=== PATIENT | female | born 1955 | race Caucasian/White ===

== ENCOUNTER → 2020-04-03 13:25 | Outpatient (CLI) | payer MEDICARE, OTHER, SELFPAY ==
[2020-04-02 13:58] VITALS: BMI 27.1
--- NOTE | 2020-04-03 13:27 | US_ITS ---
STUDY: ULTRASOUND BREAST - RIGHT REASON FOR EXAM: Female, 65 years old. Palpable lump in the right breast. TECHNIQUE: Axial and longitudinal images of the RIGHT breast were performed with a high resolution ultrasound transducer. # OF IMAGES: 49 COMPARISON: Comparison is made with prior mammogram done earlier today. FINDINGS: RIGHT Breast: The mammographic abnormality corresponds to a 2.1 cm x 2.2 cm x 1.4 cm hypoechoic irregular solid nodule with posterior acoustical shadowing. Increased blood flow is seen within the. A biopsy is recommended for further evaluation. US/Breast Limited Unilateral IMPRESSION: 2.1 cm x 2.2 cm x 1.4 cm irregular heterogeneous solid nodule at the 9 o''clock position of the breast corresponding to the palpable abnormality. A biopsy recommended. ASSESSMENT CATEGORY: BIRADS Category 5: Highly Suggestive of Malignancy - Appropriate Action Should Be Taken. A letter regarding these results will be sent to the patient by the facility within 30 days. Electronically Signed: Brooks Vaughn, at 15:15 EDT , Service support ,
--- NOTE | 2020-04-03 13:27 | BI_ITS ---
MAMMOGRAPHY - BILATERAL DIAGNOSTIC REASON FOR EXAM: Female, 65 years old. Right breast lump. PERTINENT HISTORY: Non-contributory. TECHNIQUE: Digital bilateral breast edgar (3D mammographic acquisition) in the CC and MLO projections. 2-D mediolateral oblique (MLO) and craniocaudad (CC) views of both breasts were obtained. CAD: Full Field Digital Mammography with Computer Added Detection was performed. COMPARISON: No comparison mammograms available at this time. If any prior films become available, an addendum to this report can be generated. FINDINGS: Breast Composition: The breasts are heterogeneously dense, which may obscure small masses. The palpable abnormality corresponds to a 2.6 cm x 2.9 cm irregular spiculated nodule in the axillary region of the right breast. There is evidence of overlying skin thickening and skin retraction. Correlation with ultrasound is recommended. No other significant abnormalities are identified. BI/DIAG MAMM W/CAD, BILAT IMPRESSION: 2.6 cm x 2.9 cm spiculated irregular nodule in the axillary region of the right breast corresponding to the abnormality. Correlation with ultrasound is recommended. ASSESSMENT CATEGORY: BIRADS Category 0: Incomplete. Need additional imaging evaluation. A letter regarding these results will be sent to the patient by the facility within 30 days. Approximately 10% of breast cancers are not detected by mammography. A normal mammogram should not delay biopsy of a clinically suspicious abnormality. Electronically Signed: Brooks Vaughn, at 15:14 EDT , Service support ,
== END ==
PROVIDERS: Referring Provider Nurse Practitioner Women's Health; Visit Provider Nurse Practitioner Women's Health
DX: N64.4 Mastodynia (principal); N63.10 Unspecified lump in the right breast, unspecified quadrant
CPT/HCPCS: 76642; 77062; 77066; G0279

== ENCOUNTER → 2020-04-04 14:03 | Outpatient (CLI) | payer MEDICARE, OTHER, SELFPAY ==
--- NOTE | 2020-04-04 | BRBX_PTH ---
PATIENT: ENOCH MOSQUEDA LOC: [facility] U#:[id number] AGE/SX: 70/F ROOM: RE04/04/[address]: Dr. Alvin Zee MD : 1955 BED: DIS: SPEC #: [id number] RECD: 04/04/20 13:09 STATUS: TEZ BLAIR #: [id number] ELLE: 04/04/20 00:[address]: Alvin Zee DEPT: SURGICAL PATHOLOGY RECD BY: Maksim Scott ENTERED: 04/08/20 08:33 SP TYPE: BREAST BX OTHR DR: No Primary Care Phys Tissues: Right breast, NOS Procedures: Surgery Specimen Level IV HEADER OPERATION: Ultrasound-guided needle core biopsy, right breast PRE-OP DIAGNOSIS: Right breast mass TISSUE SUBMITTED: Right breast tissue MICROSCOPIC DIAGNOSIS Right breast, ultrasound-guided needle core biopsy: Invasive ductal carcinoma with the following characteristics: Maximal length - 6.5 millimeters Nuclear grade - 1 See comment. AM:rg 04/09/20 COMMENT ER/NM/Ftq2ceb studies are being performed on sections of tumor and the results from this study will be reported separately ([id number]). Case has been reviewed in consultation with Dr. Machado who concurs with the above diagnosis. IDC:[email or web address] MICROSCOPIC DESCRIPTION Slides are reviewed. GROSS DESCRIPTION Received in fixative is one container labeled with the patient name and designated right breast. The specimen consists of multiple elongated fragments of barlow-yellow fibroadipose tissue that in aggregate measure 2.5 x 0.5 x 0.1 cm. The entire specimen is submitted in one cassette. / YASH:jerardo 04/08/20 TC:0 CPT: 07049
--- NOTE | 2020-04-04 | IMM_PTH ---
PATIENT: ENOCH MOSQUEDA LOC: [facility] U#:[id number] AGE/SX: 70/F ROOM: RE04/04/[address]: Dr. Alvin Zee MD : 1955 BED: DIS: SPEC #: [id number] RECD: 04/09/20 13:39 STATUS: TEZ REQ #: [id number] ELLE: 04/04/20 00:[address]: Alvin Zee DEPT: IMMUNOHISTOCHEMISTRY RECD BY: Pascale Montes ENTERED: 04/09/20 13:41 SP TYPE: IMMUNO OTHR DR: No Primary Care Phys Tissues: Right breast, NOS Procedures: CALPONIN-1 (add) CK5-6 (add) CK8 (add) BURGESS-2 (add) E-CAD (add) HER2 LOREN (add) KI-67 (add) P53 (add) LA (add) P40 (add) ER (initial) PHYSICIAN & INSTITUTION [address] [address] SPECIMEN INFORMATION: Tissue Source: Right breast Clinical Info: Right breast mass Specimen Number: [id number] CPT code: 15005, 55393 x7, 47595 x3 METHODOLOGY: Deparaffinized sections of prefer/formalin-fixed tissue or PAP/DQ stained slides are incubated with monoclonal/polyclonal antibodies/oligonucleotide probes. Localization is made via biotin free immunoperoxidase method. Appropriate controls are performed and reacted as expected. Results on target cell population are indicated in the following table: RESULTS: ANTIBODY / CLONE RESULT P53 (DO-7) positive, 85% Ki-67 (30-9) positive, 35% CK8 (38flexH63) positive CK5-6 (D5 & 1684) positive Calponin-1 (YL700R) negative P40 (BC28) negative E-Cad (ECH-6) positive BURGESS-2 (SP21) positive MORPHOMETRIC ANALYSIS ER (clone 6F11) >95%, strong LA (clone 16/1E2) >95%, strong Her-2Neu (clone CB11) 0 The prognostic test for HER2 is performed on formalin-fixed paraffin embedded tissue. A 3+ (positive) staining pattern is defined as intense, homogeneous, complete, circumferential membranous staining in >10% of contiguous tumor cells. A similar weak (2+) staining pattern is interpreted as equivocal. KEMI follow-up testing is recommended for all equivocal cases. Positivity/negativity for ER/LA is reported if > or < 1% of the tumor cells are immuno- reactive, respectively. The ASCO/CAP criteria is used for scoring. Reference: Journal of Clinical Oncology, 2013; 31:7588-2290 & 2010; 16:1513-9654. Duration of fixation: 79 Hrs; Sample Adequate: Yes. These assays have not been validated on decalcified tissues. Results should be interpreted with caution given the likelihood of false negativity on decalcified specimens. These tests were developed and their performance characteristics determined by [facility]. They may not have been cleared or approved by the U.S. Food and Drug Administration. The FDA has determined that such clearance or approval is not necessary. The above immunohistochemical/dualISH markers are ordered and reviewed by the Pathologist. INTERPRETATION: Right breast, ultrasound-guided needle core biopsy: Invasive ductal carcinoma, nuclear grade 1. Positive for estrogen receptors (favorable prognostic indicator). Positive for progesterone receptors (favorable prognostic indicator). Negative for overexpression of FBH1qaq. AM:jerardo 04/10/20
[2020-04-04 12:39] VITALS: BMI 27.1
== END ==
PROVIDERS: Referring Provider Surgery; Visit Provider Surgery
DX: N63.10 Unspecified lump in the right breast, unspecified quadrant (principal)
CPT/HCPCS: 88305; 88341; 88342

== ENCOUNTER 2020-04-23 14:16 | Observation (INO) | payer MEDICARE, OTHER, SELFPAY ==
[2020-04-04 12:39] VITALS: BMI 27.1
[2020-04-23] VITALS (10 sets, daily range): BP systolic 121–144; BP diastolic 77–99; PULSE 73–88; RESP 16–20; TEMP 36.4–37.1; O2SAT 93–99; BMI 25.9
--- NOTE | 2020-04-23 | IMM_PTH ---
PATIENT: ENOCH MOSQUEDA LOC: [facility] U#:[id number] AGE/SX: 65/F ROOM: MS318 RE04/23/[address]: Dr. Alvin Zee MD : 1955 BED: 1 DIS: 04/24/2020 SPEC #: [id number] RECD: 04/28/20 12:18 STATUS: TEZ REQ #: [id number] ELLE: 04/23/20 00:[address]: Alvin Zee DEPT: IMMUNOHISTOCHEMISTRY RECD BY: Pascale Montes ENTERED: 04/28/20 12:19 SP TYPE: IMMUNO OTHR DR: No Primary Care Phys Tissues: B - Axilla, NOS Procedures: CK7 (add) Pankeratin (add) CK7 (initial) PHYSICIAN & INSTITUTION [place] [address] SPECIMEN INFORMATION: Tissue Source: B - Right axillary content Clinical Info: Malignant neoplasm of upper outer quadrant right breast, ER positive Specimen Number: [id number] B1-B4 CPT code: 51212, 16123 x7 METHODOLOGY: Deparaffinized sections of prefer/formalin-fixed tissue or PAP/DQ stained slides are incubated with monoclonal/polyclonal antibodies/oligonucleotide probes. Localization is made via biotin free immunoperoxidase method. Appropriate controls are performed and reacted as expected. Results on target cell population are indicated in the following table: RESULTS: ANTIBODY / CLONE RESULT Block B1 CK7 (OV-TL12/30) negative AE1-3 (AE1/AE3/PCK26) negative Block B2 CK7 (OV-TL12/30) negative AE1-3 (AE1/AE3/PCK26) negative Block B3 CK7 (OV-TL12/30) negative AE1-3 (AE1/AE3/PCK26) negative Block B4 CK7 (OV-TL12/30) negative AE1-3 (AE1/AE3/PCK26) negative These tests were developed and their performance characteristics determined by [facility]. They may not have been cleared or approved by the U.S. Food and Drug Administration. The FDA has determined that such clearance or approval is not necessary. The above immunohistochemical/dualISH markers are ordered and reviewed by the Pathologist. INTERPRETATION: B. Right axillary content, biopsy: 15 out of 15 lymph nodes negative for carcinoma. AM:jerardo 04/29/20
--- NOTE | 2020-04-23 | BRBX_PTH ---
PATIENT: ENCOH MOSQUEDA LOC: [facility] U#:[id number] AGE/SX: 65/F ROOM: [place]318 RE04/23/[address]: Dr. Alvin Zee MD : 1955 BED: 1 DIS: 04/24/2020 SPEC #: [id number] RECD: 04/23/20 13:26 STATUS: TEZ BLAIR #: [id number] ELLE: 04/23/20 00:[address]: Alvin Zee DEPT: SURGICAL PATHOLOGY RECD BY: Pascale Montes ENTERED: 04/23/20 14:08 SP TYPE: BREAST BX OTHR DR: No Primary Care Phys Tissues: Right breast, NOS Procedures: Surgery Specimen Level IV Surgery Specimen Level V HEADER OPERATION: Stereotactic wire localization lumpectomy with axillary dissection PRE-OP DIAGNOSIS: Malignant neoplasm of upper-outer quadrant of right breast, ER positive TISSUE SUBMITTED: A - Right breast mass, long suture - lateral, short suture - superior, B - Right axillary content, C - New inferior margin right breast mass, stitch chairez new margin, D - New medial margin right breast mass, stitch chairez new margin MICROSCOPIC DIAGNOSIS A. Right breast, lumpectomy: Invasive ductal carcinoma. See cancer checklist below. B. Right axillary contents, regional lymphadenectomy: 15 out of 15 lymph nodes negative for metastatic carcinoma. C. Right breast, new inferior margin, excision: Fibrocystic change, focal intraductal hyperplasia without atypia and Banal microcalcifications. No evidence of malignancy. D. Right breast, new medial margin, excision: Fibrocystic change, focal intraductal hyperplasia without atypia and Banal microcalcifications. No evidence of malignancy. AM:jerardo 04/29/20 COMMENT INVASIVE BREAST CANCER SUMMARY: Procedure: Excision with wire guidance Specimen: Type: Partial breast Size: 6 x 5.5 x 4 cm Laterality: right breast Invasive Tumor: Size: 3.5 x 3 x 2.5 cm Focality: Single focus Histologic type: Invasive ductal carcinoma. Histologic grade (Caitlin grade): Glandular/tubular differentiation score: 3 Nuclear pleomorphism score: 2 Mitotic count score: 3 Overall grade: 3 (score of 8) Lymphvascular invasion: Not identified Ductal Carcinoma In Situ: Not identified Lobular Carcinoma In Situ: Not identified Tumor extension: Skin: Not applicable Nipple: Not applicable Skeletal muscle invasion: Not applicable Margins Involved by Invasive Carcinoma: Distance from closest margin: 1 cm from inferior margin Lymph Nodes: Number of sentinel lymph nodes examined: 0 Total number of lymph nodes examined: 15 No evidence of macrometastases, micrometastases or isolated tumor cells See specimen B (regional lymphadenectomy) Microcalcifications: Present in carcinomatous tissue. Treatment Effect: Unknown Additional Pathologic Findings: Fibrocystic change, focal intraductal hyperplasia and involutional change. Ancillary Studies: Previously performed on same tumor ([id number] / [id number]) ER: >95%, strong intensity DC: >95%, strong intensity Vbk5mik: 0 Pathologic Stage: pT2 N0 Mx The above summary is in compliance with [employer] (CAP) Cancer Protocols Checklist and [place] Joint Committee on Cancer (AJCC), Staging Manual, 8th Ed. MICROSCOPIC DESCRIPTION Slides are reviewed. GROSS DESCRIPTION A - Received fresh for intraoperative consultation labeled with the patient's name is a specimen designated breast mass. The specimen consists of a piece of fibroadipose tissue with needle localization measuring 6 x 5.5 x 4 cm. The specimen is oriented as follows: short suture - superior, long suture - lateral. The specimen is inked as follows: anterior - yellow, posterior - black, superior - blue, inferior - green, medial - red and lateral - orange. Serial sections reveal an indurated tumor mass measuring 3.5 x 3 x 2.5 cm. This mass is 0.1 cm away from the closest inferior margin. [place] sections are submitted in 12 cassettes as follows: 1 & 2 - perpendicular margin, 3-8 - tumor with closest inferior and posterior margin, 9-11 - major account representative sections adjacent to the tumor, 12 - major account representative sections away from the tumor. The specimen will be submitted after additional fixation. B - Received in fixative is one container labeled with the patient's name and designated right axillary contents. The specimen consists of a piece of yellow adipose tissue measuring 7 x 4 x 1.5 cm. Multiple nodules consistent with lymph nodes are identified. The largest lymph node measures 3 cm in greatest dimension. The lymph nodes are submitted in entirety in four cassettes as follows: 1 - multiple lymph nodes, 2 - multiple lymph nodes, 3 & 4 - one bisected lymph node. The specimen will be submitted after additional fixation. C - Received in fixative is one container labeled with the patient's name and designated new inferior margin right breast mass, stitch chairez new margin. The specimen consists of a piece of barlow-yellow fibroadipose tissue measuring 6 x 5.5 x 1 cm. The new margin is identified by a suture which is inked black. The old margin is inked blue. Sections reveal a focal indurated area. No obvious mass lesion is identified. [place] sections are submitted in four cassettes. The indurated area is present in cassette 1. The specimen will be submitted after additional fixation. D - Received in fixative is one container labeled with the patient's name and designated new medial margin right breast mass. The specimen consists of a piece of barlow-yellow adipose tissue with fibroadipose tissue measuring 6 x 1 x 1 cm. The new margin is oriented by a suture and is inked black. The old margin is inked blue. A focal indurated area is noted. The entire specimen is submitted in four cassettes. The specimen will be submitted after additional fixation. / SJ:rg 04/24/20 TC:0 [place]: [address] x2, 51178 x2 ADDENDUM ADDENDUM ADDENDUM ADDENDUM ADDENDUM ADDENDUM ADDENDUM ADDENDUM 05/14/2020 09:34 ADDENDUM 05/14/2020 09:34 ADDENDUM 05/14/2020 09:34 ADDENDUM 05/14/2020 09:34 ADDENDUM 05/14/2020 09:34 An order for Oncotype testing was received from Dr. Chatman. This necessitated case review, block and slide selection by pathologist at [facility]. Breast Cancer Recurrence Score = 28 Results of the complete Oncotype testing (iContact report) are viewable in EMR under: Reports - Pathology - Lab Pathology Report, Scanned.
--- NOTE | 2020-04-23 09:30 | NM_ITS ---
PROCEDURE: NUCLEAR MEDICINE Injection [place] Node - RIGHT breast(s). REASON FOR EXAM: Female, 65 years old. Right breast cancer. TECHNIQUE: [place] node localization using radionuclide methods of the RIGHT breast(s) was performed following subcutaneous administration of 1.1 mCi of of sulfur colloid Tc-99m. FINDINGS: 1.1 mCi of technetium labeled sulfur colloid was injected subcutaneously in 4 equal aliquots in the upper lateral aspect of the right breast. NM/Lymph Node Injection Only IMPRESSION: Subcutaneous injection of 1.1 mCi of technetium sulfur colloid at the biopsy site for sentinel node imaging. Electronically Signed: Brooks Vaughn, at 10:13 EDT , Service support ,
--- NOTE | 2020-04-23 09:59 | PCM.HP.STD ---
Problem List (1) Breast cancer, right Status: Acute Qualifiers: Breast location: upper outer quadrant of breast Estrogen receptor status: positive Patient sex: female Qualified Code(s): C50.411 - Malignant neoplasm of upper-outer quadrant of right female breast; Z17.0 - Estrogen receptor positive status [ER+] History of Present Illness Date of Admission: 04/23/20 The patient is a 65 year old F here for right breast cancer treatment. Patient had biopsy revealing invasive ductal carcinoma of the right breast. Past Medical History Medical History: Medical History (Last Reviewed 04/14/20 @ 09:36 by Erin Suárez) No significant past medical history Allergies No Known Allergies Allergy (Verified 04/23/20 09:43) Home Medications: Ambulatory Orders Medication Instructions Recorded vitamin E 200 unit capsule 450 unit PO DAILY 04/02/20 zinc 50 mg tablet 50 mg PO DAILY 04/02/20 Cholecalciferol (VIT D3) [Vitamin 1,000 unit PO DAILY 04/15/20 D] Turmeric Root Extract [Turmeric 500 mg PO DAILY 04/15/20 Curcumin] Surgical History: Surgical History (Last Reviewed 04/14/20 @ 09:36 by Erin Suárez) Bladder polyps D41.4 History of right breast biopsy Onset Date: ~2001 Z98.890 Smoking Status: Former smoker Tobacco Use: Non-smoker - *Family History Maternal Family History: Family History (Last Reviewed 04/14/20 @ 09:36 by Erin Suárez) Mother Heart disease Uterine cancer Grandmother Diabetes Unknown Kidney disease Review of Systems Constitutional: Denies: Anorexia HEENT: Denies: Difficulty Swallowing Cardiovascular: Denies: Chest Pain Respiratory: Denies: Cough, Shortness of Breath Gastrointestinal: Denies: Abdominal Pain, Nausea, Vomiting Musculoskeletal: Denies: Arm Pain, Joint Tenderness, Leg Pain Skin: Denies: Dryness Psychiatric: Denies: Anxiety Hematologic/ Lymphatic: Denies: Anemia VTE Information - Inpt Only VTE Present on Admission: No VTE Mechan Device Prophylaxis: SCD's - Physical Exam Vitals/I&O's: Vital Signs Temp Pulse Resp BP Pulse Ox 98.6 F 81 16 144/88 H 97 04/23/20 09:47 04/23/20 09:47 04/23/20 09:47 04/23/20 09:47 04/23/20 09:47 Oxygen Delivery Method Room Air Weight: 160 lb 14.999 oz Body Mass Index (BMI) 25.9 General: Alert, Oriented x3 Neck: No JVD Lungs: Normal air movement Cardiovascular: Regular rate, Regular Rhythm Abdomen: Soft, Non Tender, Non-Distended Psych/Mental Status: Normal Affect Current Medications Cefazolin Sodium 2 gm/ Sodium (Chloride) 110 mls @ 150 mls/hr IV PREOP ONE Stop: 04/23/20 11:58 Assessment/Plan All Active Problems (Last Reviewed 04/14/20 @ 09:36 by Erin Suárez) Breast cancer, right (Acute) 65-year-old female with right breast cancer The patient was found to have right breast cancer on biopsy. It was ER FL positive and HER-2 negative. The size is approximately 2 cm. I believe that with her breast size she would be able to have breast conservative surgery. I discussed partial mastectomy versus mastectomy with her and her . I discussed a right partial mastectomy with sentinel lymph node biopsy. I discussed the risks of positive lymph nodes and needing full dissection as well as risks of lymphedema, infection, hematoma, injury to nerves. The patient understands the risks and is well to proceed. I will have the patient get nuclear injection as well as stereotactic wire localization before surgery. All the patient's questions were answered as well as discussion of alternatives such as mastectomy. Alvin Zee MD Pager: [facility] [address] [place] [address], [address] [place] [address] Office:
[2020-04-23] MEDS: Lactated Ringers 1,000 ML 100 ML IV (10:01)
--- NOTE | 2020-04-23 10:34 | BI_ITS ---
SURGICAL BREAST SPECIMEN RADIOGRAPH CLINICAL: Document presence of mass in biopsy specimen. FINDINGS: Specimen shows presence of mass. Electronically Signed: Brooks Vaughn, at 13:59 EDT , Service support , BI/Breast Biopsy Specimen
[2020-04-23] MEDS: Cefazolin 2 GM in 0.9% Normal Saline 100 ML IV (11:40)
[2020-04-23] MEDS: Isosulfan Blue 1% 5 ML Vial (11:44)
[2020-04-23] MEDS: 0.9% Saline Lock 10 ML Syringe IV (11:45)
[2020-04-23] MEDS: Bupiv/Epi 0.25% 30 ML Vial (12:00)
--- NOTE | 2020-04-23 14:20 | PCM.OPRPT ---
Problem List (1) Breast cancer, right Status: Acute Qualifiers: Breast location: upper outer quadrant of breast Estrogen receptor status: positive Patient sex: female Qualified Code(s): C50.411 - Malignant neoplasm of upper-outer quadrant of right female breast; Z17.0 - Estrogen receptor positive status [ER+] Report of Operation Date of Procedure: 04/23/20 Pre-Operative Diagnosis: Right breast cancer Post-Operative Diagnosis: Same Surgery/Procedure Performed:: 1. Stereotactic right breast wire localization. 2. Axillary dissection. 3. Right partial mastectomy with injection of blue dye Specimen's removed: Right axillary contact. Right partial mastectomy. New medial and inferior margin Drains: COURNTEY to bulb suction Description of Procedure: The patient was taken to the stereotactic room and placed on the stereotactic table. The right breast was imaged and the mass was localized using stereotactic images. The breast was then prepped and anesthetized. The needle was placed into the breast and the wire was deployed. The needle was removed and mammogram images were obtained. Patient was then taken to the operating room and general anesthesia was induced. The right breast and axilla were prepped and draped in usual sterile fashion. The axilla was then marked and injected with local anesthesia. An incision was then made and this was deepened to the axillary fascia using electrocautery. The axillary fascia was incised and the axilla was dissected. No blue dye or positive radiotracer nodes were identified. At that point the patient was converted to axillary dissection. The axillary contents were dissected free posteriorly until the latissimus was reached. Dissection was then carried superiorly until the axillary vein was encountered and the axillary vein and was cleared medially until the pectoral muscle was identified. The axillary contents were dissected inferiorly identifying the long thoracic and thoracodorsal nerve. Both nerves were intact at the end of the dissection. Axillary contents were sent for pathology. Next an incision was made on the lateral right breast. The flaps were created on the skin using electrocautery and the wire was delivered into the incision. Dissection was carried out circumferentially and the mass was removed. Electrocautery was used to confirm hemostasis. The mass was marked and sent for pathology and mammogram. The mammogram image showed the clip was in the mass. The frozen section revealed there was a close inferior margin. New inferior and medial margins were taken and sent for pathology. The cavity was irrigated and suctioned dry. Hemostasis was obtained using electrocautery. Next the skin was closed with interrupted 3-0 Vicryl sutures. The axillary cavity was irrigated and suctioned as well. A 15 Vietnamese round drain was placed into the right axilla and sutured to the skin. Both incisions were closed with interrupted 3-0 Vicryl suture and running 4-0 Monocryl suture as well as glue. Drain was connected to bulb suction. Patient tolerated the procedure well and was brought to PACU in stable condition. - Admit VTE Documentation VTE Mechan Device Prophylaxis: SCD's
[2020-04-23] MEDS: 0.9% Normal Saline 1,000 ML 60 ML IV (16:15)
[2020-04-23] MEDS: Acetaminophen 325 MG Tablet 650 MG PO (20:01)
[2020-04-24 03:38] VITALS: BP 120/85; PULSE 78; RESP 17; TEMP 37.1; O2SAT 95
[2020-04-24 05:12] LABS: Absolute Neutrophil Count 5.5 X10^3/uL (2.0-7.7); Basophil# 0.02 X10^3/uL; Basophil% 0.3 % (0-1); Hemoglobin 13.3 g/dL (12.0-15.0); Lymphocyte % 15.9 % (19-41); Mean Corp Hgb Conc 32.4 g/dL (32-36); Mean Corpuscular Hgb 30.3 pg (27.0-32.0); Mean Corpuscular Volume 93.4 fL (81-99); Mean Platelet Vol. 9.9 fl (6.2-12.0); Monocyte# 0.86 X10^3/uL; Monocyte% 11.4 % (0-10); NRBC Flagged by Analyzer 0 % (0-5); Neutrophil # 5.47 X10^3/uL (2.7-7.7); Neutrophil % 72.1 % (47-70); Platelet Count 262 K/mm3 (150-450); RBC Distribution Width CV 12.8 % (11.6-14.6); RBC Distribution Width SD 44.1 fl (35.1-43.9); Red Blood Count 4.39 M/mm3 (4.2-5.4); White Blood Count 7.6 K/mm3 (4.4-11.0)
[2020-04-24 05:24] LABS: Anion Gap 6 (5-15); BUN 12 mg/dL (7-18); BUN/Creat Ratio 15.6 RATIO (10-20); Calcium,Total 8.8 mg/dL (8.5-10.1); Chloride 106 mmol/L (98-107); Creatinine, Serum 0.77 mg/dL (0.55-1.02); EST Glomerular Filtration Rate 80 mL/min (>60); Est Glom Filt Rate - Afr Amer 97 mL/min (>60); Estimated Creatinine Clearance 68.19 ml/min; Glucose 114 mg/dL (74-106); Sodium Level 138 mmol/L (136-145)
--- NOTE | 2020-04-24 07:16 | PCM.DC.BS ---
Discharge Diet: No Restrictions Discharge Activity: May Not Drive - for 2-3 days or while taking narcotic pain meds., May Shower Lifting Restrictions: 10 pounds for 1 week. Call your doctor if your incision/area has: Continuous Slow Oozing, Sudden Increased Bleeding, Increased Pain/ Swelling, Increased Redness, Foul Smelling Discharge, Swelling at the incision site Call your doctor if you observe: Fever of 101 or Higher Suture Line Care: Avoid Pulling/Pushing, Avoid Pinching/Bending Drain: Suction Additional Dressing/Incision Instructions:: Strip drain a few times per day, record output. Allergies/Adverse Reactions: Allergies No Known Allergies Allergy (Verified 04/23/20 09:43) Medications to take at Discharge vitamin E 200 unit capsule 450 unit PO DAILY 04/02/20 zinc 50 mg tablet 50 mg PO DAILY 04/02/20 Cholecalciferol (VIT D3) [Vitamin D3] 1,000 unit PO DAILY 04/15/20 Turmeric Root Extract [Turmeric Curcumin] 500 mg PO DAILY 04/15/20 Acetaminophen [Tylenol Tablet] 650 mg PO Q4H PRN PRN tablet 04/24/20 Oxycodone [Oxyir] 5 - 10 mg PO Q4H PRN PRN 5 Days #15 tablet 04/24/20 The following prescriptions were given: Oxycodone [Oxyir] 5 - 10 mg PO Q4H PRN PRN 5 Days #15 tablet PRN Reason: Pain Score 4-10/10 Transmission Status: Sent to [facility] Orders to be completed after discharge: CORONAVIRUS 19, JULIANE SENDOUT Time Frame: 04/16/20, Facility: [facility], Location: Laboratory Primary Care Physician: Care Physician,No Primary [Primary Care Provider] - Please Follow Up With: Alvin Zee MD When: Please call to schedule follow up appointment for Mon or Tues. [phone]
[2020-04-24 08:09] VITALS: BP 126/82; PULSE 72; RESP 16; TEMP 36.5; O2SAT 98
== END 2020-04-24 08:51 | disposition home or self-care (01) ==
LOC: MS3 14:24
PROVIDERS: Admitting Provider Surgery; Referring Provider Surgery; Visit Provider Surgery
PROC: 0HBV0ZZ Excision of Bilateral Breast, Open Approach (ICD-10-PCS; CPT 19302; principal; 2020-04-23 11:15)
DX: C50.411 Malignant neoplasm of upper-outer quadrant of right female breast (principal); Z23 Encounter for immunization; Z17.0 Estrogen receptor positive status [ER+]; Z87.891 Personal history of nicotine dependence; G25.81 Restless legs syndrome
CPT/HCPCS: 01610; 19302; 19281; 36415; 38792; 76098; 80048; 85025; 87635; 88305; 88307; 88341; 88342; 99218; 99251; A9541; C9803; G0008; J7030; J7120; 90686; A4216; G0378; G0379; G0463; J2405; Q9968; U0003

== ENCOUNTER → 2020-05-07 | Outpatient (CLI) | payer MEDICARE, OTHER, SELFPAY ==
[2020-05-05 13:05] VITALS: BMI 27.3
--- NOTE | 2020-05-07 07:40 | CT_ITS ---
STUDY: CT ABDOMEN AND PELVIS WITH CONTRAST REASON FOR EXAM: Female, 65 years old. BREAST CANCER STAGING, RT LUMPECTOMY, LYMPH NODES REMOVED 2 WKS AGO RADIATION DOSAGE (If Supplied By Facility): CTDIvol = ( 15.02 ) mGy, DLP = ( 1282.17 ) mGycm TECHNIQUE: Transaxial images were obtained from the dome of the diaphragm to the symphysis pubis without oral contrast. IV 100mL Isovue-300 was administered. Sagittal and coronal images were reconstructed. Individualized dose optimization techniques were used for this CT. COMPARISON: None. FINDINGS: The visualized lung bases are unremarkable. The visualized portions of the heart are within normal limits. Multiple small hepatic cysts with the largest measuring 1 cm in the anterior segment the right lobe. Normal gallbladder and extrahepatic biliary system. Normal spleen. Normal pancreas. Normal bilateral adrenal glands. Normal right kidney. Normal left kidney. Normal visualized stomach. Normal small intestine. There are multiple colonic diverticula consistent with diverticulosis. The appendix is visualized and appears normal. Normal abdominal aorta. Normal inferior vena cava. Normal retroperitoneum. Normal urinary bladder. Normal abdominal wall. Normal osseous structures. CT/Abdomen/Pelvis W IV Cont ONLY IMPRESSION: Normal enhanced CT of the abdomen and pelvis. No CT evidence metastatic disease. Electronically Signed: Julio César Ramirez MD at 8:31 EDT Tel , Service support ,
--- NOTE | 2020-05-07 07:40 | CT_ITS ---
STUDY: CT CHEST WITH CONTRAST REASON FOR EXAM: Female, 65 years old. BREAST CANCER STAGING, RT BREAST LUMPECTOMY, LYMPH NODES REMOVED 2 WKS AGO RADIATION DOSAGE (If Supplied By Facility): CTDIvol = ( 15.02 ) mGy, DLP = ( 1282.17 ) mGycm TECHNIQUE: Transaxial imaging was performed following intravenous administration of IV 100mL Isovue-300. Individualized dose optimization techniques were used for this CT. COMPARISON: None. FINDINGS: 8 cm mass of the lateral aspect of the right breast consistent with known breast cancer. Mild bilateral apical scarring. No noncalcified nodule or mass. There is no demonstrated pleural abnormality. Normal heart and pericardium. Normal mediastinum. Normal hilar regions. Normal enhanced pulmonary arteries. Normal aorta arch and descending thoracic aorta. Normal osseous structures. There is no demonstrated abnormality of the visualized upper abdomen. CT/Chest WITH Contrast IMPRESSION: Known large right breast cancer but no pulmonary parenchymal metastatic disease. Electronically Signed: Julio César Ramirez MD at 8:28 EDT Tel , Service support ,
== END | disposition home or self-care (01) ==
PROVIDERS: Referring Provider Internal Medicine Medical Oncology; Visit Provider Internal Medicine Medical Oncology
DX: C50.811 Malignant neoplasm of overlapping sites of right female breast (principal)
CPT/HCPCS: 71260; 74177; Q9967

== ENCOUNTER → 2020-05-08 08:26 | Outpatient (CLI) | payer MEDICARE, OTHER, SELFPAY ==
[2020-05-05 13:05] VITALS: BMI 27.3
--- NOTE | 2020-05-08 08:27 | NM_ITS ---
CLINICAL: 65-year-old female with recent diagnosis of primary breast carcinoma. WHOLE BODY 99m Tc MDP RADIONUCLIDE BONE SCINTIGRAPHY COMPARISON: CT of the chest, abdomen and pelvis reports 05/07/2020 FINDINGS: Following the intravenous administration of 26.0 mCi of 99m Tc MDP, whole body bone images reveal: 1. Increased radiopharmaceutical concentration is identified in the bilateral wrists, the acromioclavicular compartments of both shoulders, sternoclavicular compartment of the right shoulder, medial compartment of the left ankle, the bilateral mid and forefoot. 2. The remaining skeletal structures are scintigraphically unremarkable with normal-appearing renal images and urinary bladder activity identified. Enhanced tracer concentration is asymmetrically defined in the right anterior chest wall-breast most consistent with the patient''s known breast carcinoma. Facilitated uptake is discerned in the greater trochanteric aspect of the left proximal femur most consistent with periostitis and/or trochanteric bursitis. NM/Bone Scan Whole Body IMPRESSION: 1. The increase in radiopharmaceutical concentration identified in the bilateral shoulders and wrists, the left ankle, right-left mid and forefoot is most consistent with degenerative arthritis. 2. There is no definitive typical scintigraphic evidence of diffuse osteoblastic axial skeletal metastatic disease on the current examination. Electronically Signed: Julio César Curry DO at 23:15 EDT Tel , Service support ,
== END ==
PROVIDERS: Referring Provider Internal Medicine Medical Oncology; Visit Provider Internal Medicine Medical Oncology
DX: C50.811 Malignant neoplasm of overlapping sites of right female breast (principal)
CPT/HCPCS: 78306

== ENCOUNTER → 2020-05-19 | Outpatient (CLI) | payer MEDICARE, OTHER, SELFPAY ==
[2020-05-19 10:59] VITALS: BMI 27.3
[2020-05-23 09:47] LABS: HPV APTIMA, High Risk Negative (Negative)
== END | disposition home or self-care (01) ==
LOC: LABSPEC 13:05
PROVIDERS: Referring Provider Nurse Practitioner Women's Health; Visit Provider Nurse Practitioner Women's Health
DX: Z12.4 Encounter for screening for malignant neoplasm of cervix (principal)
CPT/HCPCS: 87624; 88175; G0145

== ENCOUNTER → 2020-05-27 13:53 | Outpatient (CLI) | payer MEDICARE, OTHER, SELFPAY ==
[2020-05-20 13:22] VITALS: BMI 26.4
--- NOTE | 2020-05-27 13:53 | ECHOCSONC_ITS ---
Reason For Study: Pre Chemo Procedure This was a 2D Doppler, Color Flow transthoracic echocardiogram. Myocardial strain analysis was performed in this exam to aid in the assessment of cardiac function. The study was technically difficult. Contrast injection was performed. Exam performed in department. Left Ventricle Normal LV size. Left ventricular systolic function is normal. The estimated ejection fraction is 70 %. The global longitudinal strain = -25 % (normal). No evidence for diastolic dysfunction. No regional wall motion abnormalities noted. Right Ventricle Normal RV size. Normal systolic function. Atria The left atrium is mildly enlarged. Normal right atrium. Hypermobile atrial septum. Bubble contrast study negative for right to left interatrial shunt. Mitral Valve There is no mitral annular calcification. Normal mitral valve. Trivial mitral valve insufficiency. Tricuspid Valve Normal tricuspid valve. Mild tricuspid valve insufficiency. Right ventricular systolic pressure estimated to be 19 mmHg. Aortic Valve Trisinus/trileaflet aortic valve. Normal aortic valve. Pulmonic Valve The pulmonic valve is not well visualized. Mild (1+) pulmonic valve insufficiency. Great Vessels Normal sized aortic root. Pericardium/Pleural No pericardial effusion. Medication 22 gauge I.V. with prn adaptor inserted into left arm. Diluted definity 3ml given slow IV push to enhance endocardial definition. Performed a rapid injection of agitated mix of 9 cc saline and 1cc air to assess for atrial septal defect. MMode/2D Measurements & Calculations LVIDd: 3.9 cm IVSd: 1.0 cm Ao root diam: 3.1 cm LVIDs: 2.4 cm LVPWd: 1.1 cm LA dimension: 2.9 cm FS: 38.7 % LAV(MOD-bp): 39.3 ml LA A4 area: 17.8 cm2 RA A4 area: 12.2 cm2 LAV(MOD-bp) Indexed: 21.7 ml/m2 LAV(MOD-sp2): 35.7 ml LAV(MOD-sp4): 43.7 ml Time Measurements MV dec time: 0.32 sec Doppler Measurements & Calculations MV E max loc: 71.2 cm/sec Lat Peak E' Loc: 9.0 cm/sec Med Peak E' Loc: 7.7 cm/sec MV A max loc: 103.5 cm/sec E/E' lat: 7.9 E/E' med: 9.3 MV E/A: 0.69 MV V2 max: 115.6 cm/sec MV P1/2t max loc: 86.7 cm/sec Ao V2 max: 156.0 cm/sec MV max P.3 mmHg MV P1/2t: 86.4 msec Ao max P.7 mmHg MV V2 mean: 59.9 cm/sec MV dec slope: 293.9 cm/sec2 MV mean P.7 mmHg MV V2 VTI: 24.1 cm MVA(P1/2t): 2.5 cm2 LV V1 max: 112.6 cm/sec PA V2 max: 115.6 cm/sec TR max loc: 195.4 cm/sec LV V1 max P.1 mmHg TR max P.5 mmHg Interpretation Summary Left ventricular systolic function is normal. The estimated ejection fraction is 70 %. The global longitudinal strain = -25 % (normal). The left atrium is mildly enlarged. Trivial mitral valve insufficiency. Mild tricuspid valve insufficiency. Mild (1+) pulmonic valve insufficiency. Right ventricular systolic pressure estimated to be 19 mmHg. No evidence for diastolic dysfunction. Bubble contrast study negative for right to left interatrial shunt. Ordering Physician: Rylan Chatman Referring Physician: Germaine PCP Performed By: Bladimir Rivera RCS
== END ==
PROVIDERS: Referring Provider Internal Medicine Medical Oncology; Visit Provider Internal Medicine Medical Oncology
DX: Z01.810 Encounter for preprocedural cardiovascular examination (principal)
CPT/HCPCS: 93306; 93356; Q9957; A4216; C8929

== ENCOUNTER 2020-05-29 10:56 | Day surgery (SDC) | payer MEDICARE, OTHER, SELFPAY ==
[2020-05-20 13:22] VITALS: BMI 26.4
[2020-05-29] VITALS (12 sets, daily range): BP systolic 122–147; BP diastolic 77–103; PULSE 65–81; RESP 16; TEMP 36.3–37.3; O2SAT 93–100; BMI 26.7
[2020-05-29] MEDS: Lactated Ringers 1,000 ML 100 ML IV (11:27)
--- NOTE | 2020-05-29 12:39 | HP.PCM_ITS ---
Problem List (1) Breast cancer, right Status: Acute Qualifiers: History of Present Illness Date of Admission: 05/29/20 The patient is a 65 year old F who has a right breast cancer and needs adjuvant chemotherapy and is here for port placement. Past Medical History Medical History: Medical History (Last Reviewed 05/27/20 @ 10:33 by Valarie Romero RN) Breast cancer, right C50.911 No significant past medical history Allergies No Known Allergies Allergy (Verified 05/27/20 10:31) Home Medications: Ambulatory Orders Medication Instructions Recorded zinc 50 mg tablet 50 mg PO DAILY 04/02/20 RX: Cholecalciferol (VIT D3) 1,000 unit PO DAILY 04/15/20 [Vitamin D3] RX: Turmeric Root Extract 500 mg PO DAILY 04/15/20 [Turmeric Curcumin] RX: Acetaminophen [Tylenol Tablet] 650 mg PO Q4H PRN PRN tab 04/24/20 Magnesium Oxide [Magnesium] 400 mg PO DAILY 05/05/20 Ascorbic Acid [Vitamin C] 1,000 mg PO DAILY 05/27/20 Lidocaine/Prilocaine 1 applicatio TP DAILY PRN PRN 30 05/28/20 [Lidocaine-Prilocaine Cream] Days #1 tube Ondansetron [Ondansetron Odt] 8 mg PO Q8H PRN PRN 10 Days #30 05/28/20 tab.rapdis Surgical History: Surgical History (Last Reviewed 05/27/20 @ 10:33 by Valarie Romero RN) Bladder polyps D41.4 History of lumpectomy of right breast Onset Date: ~04/23/20 Z98.890 History of right breast biopsy Onset Date: ~2001 Z98.890 Smoking Status: Former smoker Review of Systems Constitutional: Denies: Anorexia, Fever HEENT: Denies: Difficulty Swallowing Cardiovascular: Denies: Chest Pain Respiratory: Denies: Cough, Shortness of Breath Gastrointestinal: Denies: Abdominal Pain VTE Information - Inpt Only VTE Present on Admission: No VTE Mechan Device Prophylaxis: SCD's - Physical Exam Vitals/I&O's: Vital Signs Temp Pulse Resp BP Pulse Ox 99.1 F 81 16 129/90 H 98 05/29/20 11:15 05/29/20 11:15 05/29/20 11:15 05/29/20 11:15 05/29/20 11:15 Oxygen Delivery Method Room Air Weight: 160 lb 11.472 oz Body Mass Index (BMI) 26.7 General: Alert, Oriented x3 Lungs: Normal air movement Cardiovascular: Regular rate, Regular Rhythm Abdomen: Soft, Non Tender, Non-Distended Current Medications Lactated Ringer's () 1,000 mls @ 100 mls/hr IV .Q10H DANNY Last Admin: 05/29/20 11:27 Dose: 100 mls/hr Documented by: Assessment/Plan All Active Problems (Last Reviewed 05/27/20 @ 10:33 by Valarie Romero RN) Encounter for education (Acute) Breast cancer, right (Acute) 65-year-old female here for chest port placement 1. I discussed chest port placement with the patient in detail. I discussed the risks including but not limited to bleeding, infection, pneumothorax, line infection or DVT. The patient will have a left chest port placement due to future right radiation. Patient understands all the risks and is willing proceed. Alvin Zee MD Pager: [facility] [address] [place] [address], [address] [place] [address] Office:
[2020-05-29] MEDS: Cefazolin 2 GM in 0.9% Normal Saline 100 ML IV (12:50)
[2020-05-29] MEDS: Bupiv/Epi 0.5% Mpf 30 ML Vial (13:02)
--- NOTE | 2020-05-29 13:28 | OP.PCM_ITS ---
Problem List (1) Breast cancer, right Status: Acute Qualifiers: (2) Encounter for adjustment and management of vascular access device Status: Acute Report of Operation Date of Procedure: 05/29/20 Pre-Operative Diagnosis: Need for vascular access port Post-Operative Diagnosis: Same Surgery/Procedure Performed:: Ultrasound and fluoroscopy guided left chest port placement utilizing left IJ Description of Procedure: After obtaining informed consent patient was brought back to the operating room MAC anesthesia was induced and the left chest and neck were prepped in normal sterile fashion. Ultrasound was used to evaluate both IJs and the left IJ was selected. Next, using a needle, the left IJ was accessed and a guidewire was passed on into the superior vena cava under fluoroscopy guidance. A small incision was made over the puncture site and the dilator introducer was placed over the guidewire. Next this was capped and the pocket was made for the port. 1% lidocaine with epinephrine was injected in the proposed port site. An incision was made with scalpel. Electrocautery was used to make a pocket under the skin and subcutaneous tissue. Hemostasis was obtained. Next, the catheter was tunneled up to the neck incision site and placed through the introducer. The peel-away introducer was removed and the position of the catheter was confirmed on fluoroscopy. Next, the catheter was trimmed and attached to the port with the locking device. Interrupted 2-0 Vicryl sutures were used to anchor the port to the chest wall and then the port was placed inside the pocket. The pocket was then flushed with saline and the port irrigated with saline. There was good blood return and the port flushed easily. Next, heparin was injected into the port. The skin was closed with subcutaneous interrupted 3-0 Vicryl sutures. A single 3-0 Vicryl sutures placed under the skin at the neck incision site. Steri-Strips were placed as well as op sites. Patient tolerated procedure well, was taken to PACU in stable condition. Chest x-ray will be obtained. Grafts/Implants Used: 8 [employer] PowerPort - Admit VTE Documentation VTE Mechan Device Prophylaxis: SCD's
--- NOTE | 2020-05-29 13:30 | DCINST_ITS ---
Discharge Diet: No Restrictions - Pain medication may cause nausea. You should typically eat light foods as you take your pain medication. Discharge Activity: Return to Normal Activity, May Shower - with your bandage in place in 1-2 days after surgery. DO NOT SHOWER WHEN YOUR PORT IS ACCESSED. Call your doctor if your incision/area has: Continuous Slow Oozing, Sudden Increased Bleeding, Increased Pain/ Swelling, Increased Redness Call your doctor if you observe: Fever of 101 or Higher Remove Dressing in (days):: 3 - When you remove the bandage, leave the steri- strips intact until they fall off. Allergies/Adverse Reactions: Allergies No Known Allergies Allergy (Verified 05/27/20 10:31) Medications to take at Discharge zinc 50 mg tablet 50 mg PO DAILY 04/02/20 Cholecalciferol (VIT D3) [Vitamin D3] 1,000 unit PO DAILY 04/15/20 Turmeric Root Extract [Turmeric Curcumin] 500 mg PO DAILY 04/15/20 Acetaminophen [Tylenol Tablet] 650 mg PO Q4H PRN PRN tab 04/24/20 Magnesium Oxide [Magnesium] 400 mg PO DAILY 05/05/20 Ascorbic Acid [Vitamin C] 1,000 mg PO DAILY 05/27/20 Lidocaine/Prilocaine [Lidocaine-Prilocaine Cream] 1 applicatio TP DAILY PRN PRN 30 Days #1 tube 05/28/20 Ondansetron [Ondansetron Odt] 8 mg PO Q8H PRN PRN 10 Days #30 tab.rapdis 05/28/20 Test Results: Test results from this visit will be discussed in further detail at your follow- up appointment, if applicable. Please Follow Up With: Alvin Zee MD When: Please call to schedule 2 week follow up appointment. [phone]
--- NOTE | 2020-05-29 14:10 | RAD_ITS ---
STUDY: X-RAY CHEST REASON FOR EXAM: Female, 65 years old. Post op port placement TECHNIQUE: Single AP portable view of the chest. COMPARISON: None. FINDINGS: A left-sided Port-A-Cath has been placed. The tip is at the junction of the left brachiocephalic vein and superior vena cava. EKG electrodes are seen. The lungs are clear and expanded. There is no demonstrated pleural abnormality. Normal size heart. Normal mediastinum and abdirizak. Normal visualized pulmonary arteries. There is atherosclerotic tortuosity of the aortic arch and descending thoracic aorta. Normal visualized thoracic spine. Normal visualized ribs, clavicles, and shoulders. There is no demonstrated abnormality of the visualized soft tissue structures of the upper abdomen. RAD/CXR for Line Placement IMPRESSION: The tip of the left-sided jocelynn catheter is at the junction of the left brachiocephalic vein and superior vena cava. Electronically Signed: Brooks Vaughn, at 15:01 EDT , Service support ,
== END 2020-05-29 15:10 | disposition home or self-care (01) ==
LOC: SDC 10:58 → AC 11:00
PROVIDERS: Anesthesiology; Referring Provider Surgery; Visit Provider Surgery
PROC: (CPT 36561; principal; 2020-05-29 12:15)
DX: Z45.2 Encounter for adjustment and management of vascular access device (principal); C50.911 Malignant neoplasm of unspecified site of right female breast; Z20.828 Contact with and (suspected) exposure to other viral communicable diseases; Z87.891 Personal history of nicotine dependence
CPT/HCPCS: 00532; 36561; 71045; 77001; 87635; C9803; J7120; C1788; J2405; U0003

== ENCOUNTER → 2020-06-02 12:03 | Outpatient (CLI) | payer MEDICARE, OTHER, SELFPAY ==
[2020-06-02 09:57] VITALS: BMI 26.3
--- NOTE | 2020-06-02 12:05 | RAD_ITS ---
CLINICAL HISTORY: Female, 65 years old. Portogram. PROCEDURE: 10 cc of ISOVUE-300 was injected through the indwelling left-sided a port. FLUOROSCOPY TIME (if supplied): (24 seconds) minutes/seconds STERILE BARRIER TECHNIQUE: The following sterile barrier precautions were used during the procedure: hand hygiene; use of 2% chlorhexidine aseptic; use of a cap, mask, sterile gown, sterile gloves, sterile full body drape, and a large sterile sheet. TECHNIQUE: 10 cc of ISOVUE-300 was injected into the left-sided report. There is free flow of contrast. No evidence obstruction. # of Images: 3 RAD/Con Inj Elian Eval CVP Inc Fluro IMPRESSION: Unremarkable portogram. Electronically Signed: Brooks Vaughn, at 13:14 EST , Service support ,
== END ==
PROVIDERS: Referring Provider Nurse Practitioner Family; Visit Provider Nurse Practitioner Family
DX: Z45.2 Encounter for adjustment and management of vascular access device (principal)
CPT/HCPCS: 36598; Q9965

== ENCOUNTER → 2020-06-09 13:27 | Outpatient (CLI) | payer MEDICARE, OTHER, SELFPAY ==
[2020-06-03 14:45] VITALS: BMI 26.3
== END ==
PROVIDERS: Referring Provider Nurse Practitioner Family; Visit Provider Nurse Practitioner Family
DX: Z20.828 Contact with and (suspected) exposure to other viral communicable diseases (principal)
CPT/HCPCS: 87426; C9803

== ENCOUNTER 2020-06-13 09:22 | Day surgery (SDC) | payer MEDICARE, OTHER, SELFPAY ==
[2020-06-03 14:45] VITALS: BMI 26.3
[2020-06-13] MEDS: Lactated Ringers 1,000 ML 100 ML IV (09:54)
[2020-06-13 09:56] VITALS: BP 130/83; PULSE 79; RESP 16; TEMP 37.2; O2SAT 97; BMI 26.9
--- NOTE | 2020-06-13 10:02 | HP.PCM_ITS ---
Problem List (1) Breast cancer, right Status: Acute Qualifiers: History of Present Illness Date of Admission: 06/13/20 The patient is a 65 year old F Who recently had a chest port placed which is nonfunctioning. The patient's infusion center reports that they are unable to draw blood from it and did use it after performing a confirmatory x-ray. The patient requires revision of this port for use. Past Medical History Medical History: Medical History (Last Reviewed 06/02/20 @ 09:56 by Shanna Gaitan) Breast cancer, right C50.911 No significant past medical history Allergies No Known Allergies Allergy (Verified 06/13/20 09:35) Home Medications: Ambulatory Orders Medication Instructions Recorded zinc 50 mg tablet 50 mg PO DAILY 04/02/20 Cholecalciferol (VIT D3) [Vitamin 1,000 unit PO DAILY 04/15/20 D3] Turmeric Root Extract [Turmeric 500 mg PO DAILY 04/15/20 Curcumin] Acetaminophen [Tylenol Tablet] 650 mg PO Q4H PRN PRN tab 04/24/20 Magnesium Oxide [Magnesium] 400 mg PO DAILY 05/05/20 Ascorbic Acid [Vitamin C] 1,000 mg PO DAILY 05/27/20 Lidocaine/Prilocaine 1 applicatio TP DAILY PRN PRN 30 05/28/20 [Lidocaine-Prilocaine Cream] Days #1 tube Ondansetron [Ondansetron Odt] 8 mg PO Q8H PRN PRN 10 Days #30 05/28/20 tab.rapdis Surgical History: Surgical History (Last Reviewed 06/02/20 @ 09:56 by Shanna Gaitan) Bladder polyps D41.4 History of lumpectomy of right breast Onset Date: ~04/23/20 Z98.890 History of right breast biopsy Onset Date: ~2001 Z98.890 Smoking Status: Former smoker Tobacco Use: Non-smoker Review of Systems Constitutional: Denies: Anorexia, Fever HEENT: Denies: Difficulty Swallowing Cardiovascular: Denies: Chest Pain Gastrointestinal: Denies: Abdominal Pain, Constipation Genitourinary: Denies: Dysuria Skin: Denies: Jaundice Hematologic/ Lymphatic: Denies: Anemia VTE Information - Inpt Only VTE Present on Admission: No VTE Mechan Device Prophylaxis: SCD's - Physical Exam Vitals/I&O's: Vital Signs Temp Pulse Resp BP Pulse Ox 99.0 F 79 16 130/83 H 97 06/13/20 09:56 06/13/20 09:56 06/13/20 09:56 06/13/20 09:56 06/13/20 09:56 Oxygen Delivery Method Room Air Weight: 162 lb 0.636 oz Body Mass Index (BMI) 26.9 General: Alert, Oriented x3 Neck: No JVD Lungs: Normal air movement Cardiovascular: Regular rate, Regular Rhythm Abdomen: Soft, Non Tender, Non-Distended Current Medications Cefazolin Sodium 2 gm/ Sodium (Chloride) 110 mls @ 150 mls/hr IV PREOP ONE Stop: 06/13/20 11:43 Lactated Ringer's () 1,000 mls @ 100 mls/hr IV .Q10H DANNY Last Admin: 06/13/20 09:54 Dose: 100 mls/hr Documented by: Assessment/Plan All Active Problems (Last Reviewed 06/02/20 @ 09:56 by Shanna Gaitan) Encounter for education (Acute) Encounter for adjustment and management of vascular access device (Acute) Chemotherapy management, encounter for (Acute) Breast cancer, right (Acute) 65-year-old female with nonfunctioning left chest port 1. The patient reports that her infusion center has been unable to draw from her port and they are unable to use this if they are unable to draw blood from it. They would like it revised. I discussed this with her in detail. I discussed trying to run a different guidewire down the existing catheter to see if I am unable to place a new catheter which would work better. Otherwise I may be able to place a new catheter on the left side and if that is not possible I will place a new catheter on the right side. Patient understands all this and the risks were reviewed with her. Alvin Zee MD Pager: [facility] [address] [place] [address], [address] [place] [address] Office:
[2020-06-13] MEDS: Cefazolin 2 GM in 0.9% Normal Saline 100 ML IV (11:06)
[2020-06-13] MEDS: Bupiv/Epi 0.5% Mpf 30 ML Vial (11:45)
[2020-06-13 12:01] VITALS: BP 116/77; BP 130/83; PULSE 85; RESP 16; TEMP 36.4; O2SAT 98
--- NOTE | 2020-06-13 12:01 | OP.PCM_ITS ---
Problem List (1) Breast cancer, right Status: Acute Qualifiers: Report of Operation Date of Procedure: 06/13/20 Pre-Operative Diagnosis: 1. Nonfunctioning left chest port with cellulitis. 2. Need for vascular access for chemotherapy Post-Operative Diagnosis: Same Surgery/Procedure Performed:: 1. Ultrasound and fluoroscopy guided right chest port placement utilizing right IJ. 2. Removal of left chest port catheter Specimen's removed: Left chest port Description of Procedure: The patient had cellulitis and inflammation overlying a nonfunctioning left chest port. After obtaining informed consent patient was brought back to the operating room MAC anesthesia was induced and the right chest and neck were prepped in normal sterile fashion. Ultrasound was used to evaluate both IJs and the right IJ was selected. Next, using a needle, the right IJ was accessed and a guidewire was passed on into the superior vena cava under fluoroscopy guidance. A small incision was made over the puncture site and the dilator introducer was placed over the guidewire. Next this was capped and the pocket was made for the port. 1% lidocaine with epinephrine was injected in the proposed port site. An incision was made with scalpel. Electrocautery was used to make a pocket under the skin and subcutaneous tissue. Hemostasis was obtai grisel. Next, the catheter was tunneled up to the neck incision site and placed through the introducer. The peel-away introducer was removed and the position of the catheter was confirmed on fluoroscopy. Next, the catheter was trimmed and attached to the port with the locking device. Interrupted 2-0 Vicryl sutures were used to anchor the port to the chest wall and then the port was placed inside the pocket. The pocket was then flushed with saline and the port irrigated with saline. There was good blood return and the port flushed easily. Next, heparin was injected into the port. The skin was closed with subcutaneous interrupted 3-0 Vicryl sutures. A single 3-0 Vicryl sutures placed under the skin at the neck incision site. Steri-Strips were placed as well as op sites. Next the left chest port was addressed. The previous incision was injected with local anesthetic and then a scalpel was used to remove the previous sutures. There was some clear fluid around the port with no obvious purulence but there was cellulitis around the area. The sutures were removed and the catheter was removed with little bleeding. The cavity was irrigated and loosely closed with 2 interrupted 4-0 nylon sutures. The area was bandaged. Patient tolerated procedure well, was taken to PACU in stable condition. Chest x-ray will be obtained. Grafts/Implants Used: 8 [employer] PowerPort
--- NOTE | 2020-06-13 12:03 | DCINST_ITS ---
Discharge Diet: No Restrictions - Pain medication may cause nausea. You should typically eat light foods as you take your pain medication. Discharge Activity: Return to Normal Activity, May Shower - with your bandage in place in 1-2 days after surgery. DO NOT SHOWER WHEN YOUR PORT IS ACCESSED. Call your doctor if your incision/area has: Continuous Slow Oozing, Sudden Increased Bleeding, Increased Pain/ Swelling, Increased Redness Call your doctor if you observe: Fever of 101 or Higher Remove Dressing in (days):: 3 - When you remove the bandage, leave the steri- strips intact until they fall off. Allergies/Adverse Reactions: Allergies No Known Allergies Allergy (Verified 06/13/20 09:35) Medications to take at Discharge zinc 50 mg tablet 50 mg PO DAILY 04/02/20 Cholecalciferol (VIT D3) [Vitamin D3] 1,000 unit PO DAILY 04/15/20 Turmeric Root Extract [Turmeric Curcumin] 500 mg PO DAILY 04/15/20 Acetaminophen [Tylenol Tablet] 650 mg PO Q4H PRN PRN tab 04/24/20 Magnesium Oxide [Magnesium] 400 mg PO DAILY 05/05/20 Ascorbic Acid [Vitamin C] 1,000 mg PO DAILY 05/27/20 Lidocaine/Prilocaine [Lidocaine-Prilocaine Cream] 1 applicatio TP DAILY PRN PRN 30 Days #1 tube 05/28/20 Ondansetron [Ondansetron Odt] 8 mg PO Q8H PRN PRN 10 Days #30 tab.rapdis 05/28/20 Test Results: Test results from this visit will be discussed in further detail at your follow- up appointment, if applicable. Please Follow Up With: Alvin Zee MD When: Please call to schedule 2 week follow up appointment. [phone]
[2020-06-13 12:05] VITALS: BP 120/87; BP 130/83; PULSE 84; RESP 16; O2SAT 99
[2020-06-13 12:10] VITALS: BP 126/86; BP 130/83; PULSE 81; RESP 16; O2SAT 99
--- NOTE | 2020-06-13 12:10 | RAD_ITS ---
STUDY: X-RAY CHEST REASON FOR EXAM: Female, 65 years old. PORT PLACEMENT TECHNIQUE: Port placement. COMPARISON: Comparison is made with prior study 05/29/2020. FINDINGS: A right-sided jocelynn catheter has been placed with the tip in the proximal portion of the superior vena cava. Surgical clips are seen in the right axillary region. The lungs are clear and expanded. There is no demonstrated pleural abnormality. Normal size heart. Normal mediastinum and abdirizak. Normal visualized pulmonary arteries. There is atherosclerotic tortuosity of the aortic arch and descending thoracic aorta. Normal visualized thoracic spine. Normal visualized ribs, clavicles, and shoulders. There is no demonstrated abnormality of the visualized soft tissue structures of the upper abdomen. RAD/CXR for Line Placement IMPRESSION: The tip of the right portacatheter is in the proximal portion of the superior vena cava. Surgical clips are seen in the right axillary region. Electronically Signed: Brooks Vaughn, at 12:26 EST , Service support ,
[2020-06-13 12:18] VITALS: BP 128/83; BP 130/83; PULSE 82; RESP 16; TEMP 36.1; O2SAT 97
[2020-06-13 12:42] VITALS: BP 130/83
== END 2020-06-13 12:56 | disposition home or self-care (01) ==
LOC: SDC 09:23 → AC 09:27
PROVIDERS: Referring Provider Surgery; Visit Provider Surgery
PROC: (CPT 36561; principal; 2020-06-13 10:45)
DX: T82.594A Other mechanical complication of infusion catheter, initial encounter (principal); T80.212A Local infection due to central venous catheter, initial encounter; Z45.2 Encounter for adjustment and management of vascular access device; C50.911 Malignant neoplasm of unspecified site of right female breast; G25.81 Restless legs syndrome; K58.9 Irritable bowel syndrome, unspecified; Z87.891 Personal history of nicotine dependence; Z20.828 Contact with and (suspected) exposure to other viral communicable diseases
CPT/HCPCS: 00532; 36561; 36589; 71045; 77001; J7120; C1788; J2405

== ENCOUNTER → 2020-07-29 13:00 | Outpatient (CLI) | payer MEDICARE, OTHER, SELFPAY ==
[2020-07-14 08:48] VITALS: BMI 26.7
[2020-07-23 11:08] VITALS: BMI 26.3
--- NOTE | 2020-07-29 13:02 | EKG12_ITS ---
Test Reason : Blood Pressure : / mmHG Vent. Rate : 089 BPM Atrial Rate : 089 BPM P-R Int : 140 ms QRS Dur : 062 ms QT Int : 352 ms P-R-T Axes : 058 052 063 degrees QTc Int : 428 ms Normal sinus rhythm Normal ECG Confirmed by JERI SIBLEY, ZO ([id number]), assistant film editor AWILDA HEWITT ([id number]) on 07/30/2020 12:38:11 PM Referred By: Lisandra Cosby Confirmed By:ZO WILCOX MD
--- NOTE | 2020-07-29 13:52 | BD_ITS ---
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 COMPARISON: None. FINDINGS: Lumbar Spine (L1-L4): g/cm2 (1.057) / T-score (-1.0) / Z-score (0.6) Findings are suggestive of normal bone density with a low fracture risk. Left Femur Total: g/cm2 (0.910) / T-score (-0.8) / Z-score (0.4) Left Femoral Neck: g/cm2 (0.865) / T-score (-1.2) / Z-score (0.2) Right Femur Total: g/cm2 (0.924) / T-score (-0.7) / Z-score (0.6) Right Femoral Neck: g/cm2 (0.888) / T-score (-1.1) / Z-score (0.4) BD/Dexa Bone Density Study IMPRESSION: The patient is considered osteopenic as outlined below according to [place] Organization (WHO) criteria with a low fracture risk. Reference Information: The T-score is the number of standard deviations above or below the standard which is normal for young adults at their peak bone mineral density. The World Health Organization (WHO) interprets the T-scores as follows: Above -1 Normal bone density Between -1 and -2.5 Osteopenia Equal to / or below -2.5 Osteoporosis As a practical clinical guideline, osteopenia may be graded as follows: Mild -1 through -1.5 Moderate -1.6 through -2.0 Severe -2.1 through -2.4 The Z-score is the number of standard deviations above or below age-matched controls. A Z-score of less than -1.5 would be considered abnormal. References: 1. NIH Osteoporosis and Related Bone Diseases www osteo.org 2. International Society for Clinical Densitometry www iscd.org 3. National Osteoporosis Foundation www nof.org Electronically Signed: Brooks Vaughn, at 14:44 EST , Service support ,
== END ==
PROVIDERS: PCP Internal Medicine; Referring Provider Internal Medicine; Visit Provider Internal Medicine
DX: Z78.0 Asymptomatic menopausal state (principal); Z82.49 Family history of ischemic heart disease and other diseases of the circulatory system
CPT/HCPCS: 77080; 93005

== ENCOUNTER 2021-03-18 13:00 | Outpatient (RCR) | payer MEDICARE, OTHER, SELFPAY ==
[2021-02-17 10:55] VITALS: BMI 26.5; BMI 27.8
--- NOTE | 2021-03-02 10:51 | HP.OTEVAL ---
Patient's Visit Information ENOCH MOSQUEDA is a 66 year old F, referred to Occupational Therapy by Dr. Eric Agrawal DO, with a diagnosis of right UE lymphedema. Date of Evaluation: 03/02/21 Occupational Therapist: Merly Burrell, ALEKSANDRA/Kayla, CHT - Subjective This 66 year old female was seen fro OT eval dx right breast cancer and had tumor removed 2019. pt did have 15 lymph nodes removed with 0/15 positive. pt states she did have radiation 16 + treatments. pt states she feels since her sx her arm has had some swelling. pt states she does not notice a change in arm size in morning. Pt states she did get a light compression sleeve 15-20mmHg for air travel. states fight to her destination was good but on way home she noticed more swelling in her right hand. pt is very active does swim, yard work and cares for two grandchildren ages 5 and 3. pt states she feels she has not had her UB strength return since her dx and treatments. right handed - ROM ROM Comments: pt demo full ROM - Strength Instrument Mechanic Weapons System: right 40# left 38# - Lymphedema (Circumferential Measure) MCP: right 19cn left 18cm Wrist: right 15cm left 14cm Lower forearm: right 17cm left 15cm Largest forearm: right 24cm left 21cm Elbow: right 25cm left 23cm Largest humerus: right 28cm left 26cm Axcillary: right 34cm left 32 cm - Quick DASH-Disab of Arm,Shoulder& Hand Quick DASH Score: 6.8175 - Goals Demonstrate a 20% reduction in edema by d/c: Yes Demonstrate adequate knowledge of self-massage by 2nd week: Yes Demonstrate adequate knowledge skin care/prec by 2nd week: Yes Demonstrate adequate knowledge therapeutic exercises by d/c: Yes Select approp compression garment w/donning/care/wear by d/c: Yes Voice need to replace compression garment every 4-6mo by dc: Yes - Rehabilitation General Assessment: pt demo with stage I+ lymphedema in right UE. pt demo need for skilled OT services to ed, pt on dx, treatment and beneficial exercise along with ed. on appropriate compression garments. Today therapist ed. pt on lymph system, dx and treatment of lymph stim exercise. Pt is to return for session ed. on self manual lymph drainage massage. Due to limb size therapist rec'd daily use of her current compression sleeve during home work tasks to see if this light compression will assist with mtg. and to initiate lymph stim exercise. If this does not assist in decreasing limb size will initiate a higher compression sleeve at 20-30mmHg. Therapist will send order for compression sleeve 20-30 mmHg and compression glove finger tips out to Dr. Agrawal so pt can get higher compression garment to assist in her mtg. Rehabilitation Potential: Good - Anticipated Interventions Education re Diagnosis, Manual Lymph Drainage, Education re Life-long lymphedema Management, Education re Skin Care and Precautions, Education re Self Massage Techniques, Education re Correct Donning Tech,Care&Wearing Sched Comp Garments, Caregiver Training, Home Program - Visit Plan TEXT: Thank you for the opportunity to evaluate your patient. For Medicare and Medicare HMO plans, please review the plan of care and approve it. It will need to be FAXED BACK to us at [phone] for Medicare purposes. Please let me know if there are questions or concerns regarding this plan of care. Physician Signature: Date:
--- NOTE | 2021-08-17 14:31 | HP.OT.NRP ---
ENOCH MOSQUEDA was seen in my office for initial evaluation on 03/02/21. The following Plan of Care was established for this patient: Anticipated Interventions: Education re Diagnosis, Manual Lymph Drainage, Education re Life-long lymphedema Management, Education re Skin Care and Precautions, Education re Self Massage Techniques, Education re Correct Donning Tech,Care&Wearing Sched Comp Garments, Caregiver Training, Home Program This patient was last seen in our office 03/18/21. Pertinent comments regarding their Occupational therapy will appear below: pt seen for initial eval only- pt did not return for follow up visit and due to time lapse in services pt d/c. At this point I will be discontinuing this patient from occupational therapy. I would be happy to see this patient again in the future if found appropriate by the physician. Thank you! Merly Burrell, OTR/L, CHT
== END 2021-03-18 19:00 | disposition home or self-care (01) ==
LOC: OT 13:00
PROVIDERS: PCP Internal Medicine; Referring Provider Student in an Organized Health Care Education/Training Program; Visit Provider Student in an Organized Health Care Education/Training Program
DX: I89.0 Lymphedema, not elsewhere classified (principal)
CPT/HCPCS: 97110; 97166

== ENCOUNTER → 2021-04-07 09:21 | Outpatient (CLI) | payer MEDICARE, OTHER, SELFPAY ==
[2021-02-17 10:55] VITALS: BMI 26.5; BMI 27.8
--- NOTE | 2021-04-07 09:23 | BI_ITS ---
MAMMOGRAPHY - BILATERAL DIAGNOSTIC REASON FOR EXAM: Female, 66 years old. Follow-up for prior right lumpectomy. PERTINENT HISTORY: Personal history of breast cancer. Prior right lumpectomy and right axillary node dissection. TECHNIQUE: Digital bilateral breast edgar (3D mammographic acquisition) in the CC and MLO projections. 2-D mediolateral oblique (MLO) and craniocaudad (CC) views of both breasts were obtained. CAD: Full Field Digital Mammography with Computer Added Detection was performed. COMPARISON: Comparison is made with prior mammogram dated 04/03/2020. FINDINGS: Breast Composition: The breasts are heterogeneously dense, which may obscure small masses. Since prior study, the patient underwent lumpectomy of the upper deep lateral aspect of the right breast with resultant postoperative scarring and deformity with overlying skin thickening. Surgical clips are seen in the right axilla. No other significant abnormalities are identified. BI/DIAG MAMM W/CAD, BILAT IMPRESSION: Status post lumpectomy in the upper deep lateral aspect of the right breast as described with resultant postoperative deformity. ASSESSMENT CATEGORY: BIRADS Category 2: Benign. A letter regarding these results will be sent to the patient by the facility within 30 days. Approximately 10% of breast cancers are not detected by mammography. A normal mammogram should not delay biopsy of a clinically suspicious abnormality. Electronically Signed: Brooks Vaughn MD at 11:01 EDT , Service support ,
--- NOTE | 2021-04-07 09:53 | US_ITS ---
STUDY: ULTRASOUND BREAST - RIGHT REASON FOR EXAM: Female, 66 years old. Status post right lumpectomy with radiation treatment. TECHNIQUE: Axial and longitudinal images of the RIGHT breast were performed with a high resolution ultrasound transducer. # OF IMAGES: 23 COMPARISON: Comparison is made with prior mammogram done earlier in the day and prior ultrasound of the right breast dated 04/03/2020. FINDINGS: RIGHT Breast: At the lumpectomy site, there is a complex solid and cystic density measuring 2.3 cm x 1.6 x 1.6 cm. This is at the 10 o''clock position of the breast at 7 cm from the nipple. This most likely represents postoperative seroma. US/Breast Limited Unilateral IMPRESSION: 2.3 cm x 1.6 x 1.6 cm complex solid and cystic density at the lumpectomy site. This most likely represents postoperative seroma. Follow-up is recommended. ASSESSMENT CATEGORY: BIRADS Category 2: Benign. A letter regarding these results will be sent to the patient by the facility within 30 days. Electronically Signed: Brooks Vaughn MD at 11:03 EDT , Service support ,
== END ==
PROVIDERS: PCP Internal Medicine; Referring Provider Student in an Organized Health Care Education/Training Program; Visit Provider Student in an Organized Health Care Education/Training Program
DX: R92.8 Other abnormal and inconclusive findings on diagnostic imaging of breast (principal); Z85.3 Personal history of malignant neoplasm of breast
CPT/HCPCS: 76642; 77062; 77066; G0279